=== PATIENT | female | born 1990 | race Caucasian/White ===

== ENCOUNTER 2018-01-13 07:12 | Emergency (ER) | payer OTHER ==
[2018-01-13] MEDS ORDERED: KETOROLAC 60 MG/2 ML VIAL IM STA (07:31)
[2018-01-13] MEDS ORDERED: DIAZEPAM 5 MG/ML 2 ML INJ IM ONE (07:31)
--- NOTE | 2018-01-13 07:36 | ED ---
General Adult HPI - General Chief complaint: Neck Pain/Injury Stated complaint: Neck Pain Time Seen by Provider: 01/13/18 07:15 Source: patient, RN notes reviewed Mode of arrival: wheelchair Limitations: no limitations - History of Present Illness Initial comments: Is a 27-year-old female presents emergency Department complaining of right- sided neck pain. Patient states she cracked her neck often at 4:30 this morning she cracked her neck and all of a sudden she had excruciating pain on the right side of her neck. Patient states it hurts more when she turns her neck. Patient states it hurts when she palpates her right trapezius muscle. Patient's denying any weakness or numbness. Patient denies any left-sided pain. Patient denies any mid back pain or chest pain. Patient denies any problem breathing. Patient denies any recent fever chills per patient denies any previous history. - Related Data Previous Rx's Medication Instructions Recorded Cyclobenzaprine [Flexeril] 10 mg PO TID #20 tab 01/13/18 Ibuprofen [Motrin] 600 mg PO Q6HR PRN #20 tab 01/13/18 Allergies Allergy/AdvReac Type Severity Reaction Status Date / Time amoxicillin Allergy Rash/Hives Verified 01/13/18 07:45 Review of Systems ROS Statement: Those systems with pertinent positive or pertinent negative responses have been documented in the HPI. ROS Other: All systems not noted in ROS Statement are negative. Past Medical History Additional Past Medical History / Comment(s): chronic pancreatitis History of Any Multi-Drug Resistant Organisms: None Reported Past Surgical History: Appendectomy Past Psychological History: No Psychological Hx Reported Smoking Status: Current every day smoker Past Alcohol Use History: Daily Past Drug Use History: None Reported General Exam - General Exam Comments Initial Comments: GENERAL: Patient is well-developed and well-nourished. Patient is nontoxic and well- hydrated and is in mild distress. ENT: Neck is soft and supple. No significant lymphadenopathy is noted. Oropharynx is clear. Moist mucous membranes. Patient's right trapezius is exquisitely tender on palpation. Patient is unable to turn her head fully secondary to pain patient is unable to flex secondary to pain. Patient states she is able to do these motions but it hurts to do. EYES: The sclera were anicteric and conjunctiva were pink and moist. Extraocular movements were intact and pupils were equal round and reactive to light. Eyelids were unremarkable. SKIN Skin is clear with no lesions or rashes and otherwise unremarkable. NEUROLOGIC: Patient is alert and oriented x3. Cranial nerves II through XII are grossly intact. Motor and sensory are also intact. Normal speech, volume and content. Symmetrical smile. MUSCULOSKELETAL: Normal extremities with adequate strength and full range of motion. LYMPHATICS: No significant lymphadenopathy is noted PSYCHIATRIC: Normal psychiatric evaluation. Limitations: no limitations Course Vital Signs 01/13/18 07:20 Temperature 98.0 F Pulse Rate 77 Respiratory 20 Rate Blood Pressure 142/86 O2 Sat by Pulse 100 Oximetry Medical Decision Making - Medical Decision Making I went back into the room to reevaluate the patient she was already feeling considerably better. Patient significantly increased range of motion of her neck. Disposition Clinical Impression: Cervical strain Disposition: HOME SELF-CARE Condition: Good Instructions: Cervical Strain (ED) Prescriptions: Cyclobenzaprine [Flexeril] 10 mg PO TID #20 tab Ibuprofen [Motrin] 600 mg PO Q6HR PRN #20 tab PRN Reason: For pain Is patient prescribed a controlled substance at discharge?: No Referrals: Marcial Patterson MD [Primary Care Provider] - 1-2 days Time of Disposition: 08:29
[2018-01-13 08:38] VITALS: BP 125/74; PULSE 72; RESP 18; TEMP 98
== END 2018-01-13 08:38 | disposition home or self-care (01) ==
LOC: EC 07:12
DX: S16.1XXA Strain of muscle, fascia and tendon at neck level, initial encounter (principal); F17.200 Nicotine dependence, unspecified, uncomplicated; Z88.0 Allergy status to penicillin; X50.1XXA Overexertion from prolonged static or awkward postures, initial encounter; Y93.84 Activity, sleeping
CPT/HCPCS: 99283; 96372 ×2; J3360; J1885